=== PATIENT | female | born 1990 | race African-American/Black ===

== ENCOUNTER 2018-10-22 03:57 | Inpatient (IN) | payer BC, OTHER ==
[~2018-10-22] VITALS: Ht 167.6 cm; Wt 75.3 kg
[~2018-10-22 03:57] MED LIST: ENTOCORT EC3 MG PO; IBUPROFEN600 MG ORAL; [UNRECOGNIZED DRUG - OTHER]
[2018-10-22] MEDS ORDERED: TRAZODONE HCL150 MG ORAL (04:08)
[2018-10-22] MEDS ORDERED: ALPRAZOLAM0.25 MG ORAL (04:08)
[2018-10-22] MEDS ORDERED: BUPROPION XL300 MG ORAL (04:08)
--- NOTE | 2018-10-22 04:15 | NUR ---
ER Nurse Note: Pt came from home c/o abd pain since 1999 on 10/21. Pt states she thinks it is a bowel obstruction because she had the same pain in the past from bowel obstructions. Pain is located in upper left quadrant; 8/10 sharp pain. Pt a&ox4, VSS. Pt stated she has hx of crohn's disease. Will continue to [facility].
[2018-10-22 04:27] VITALS: BP 120/83
--- NOTE | 2018-10-22 05:01 | Emergency Room Report ---
History of Present Illness General Chief Complaint: Abdominal Pain Source: Patient Present Illness HPI Patient's 28-year-old female who presented after increased epigastric discomfort. Patient reports having prior history of Crohn's disease. She states she is currently taking Vedolizumab as well as oral budesonide. Patient states that she had worsening abdominal distention as well as pain. She reports having intermittent episodes. She states that she had not been vomiting but has had prior episodes of bowel obstructions in the past. She had previous balloon dilation of stricture from area of prior surgery. She denies any fever. She states that she had not been having any bloody stools. She states that she is not definitively she reports having last period approximately 1 week ago. Allergies: Coded Allergies: No Known Allergies (Unverified , 06/09/14) Patient History Past Medical History: see triage record Last Menstrual Period: 10/13/18 Now: No Reviewed Nursing Documentation: PMH: Agreed; PSxH: Agreed Nursing Documentation-PMH Past Medical History: No History, Except For Hx Gastrointestinal Problems: Yes - CROHN'S Review of Systems All Other Systems: negative except mentioned in HPI Physical Exam Vital Signs Date Time Temp Pulse Resp B/P (MAP) Pulse Ox O2 Delivery O2 Flow Rate FiO2 10/22/18 04:03 98.4 95 14 120/83 (95) 95 Room Air Sp02 EP Interpretation: reviewed, normal General Appearance: normal inspection, well appearing, no apparent distress, alert, GCS 15 Head: atraumatic ENT: normal ENT inspection, hearing grossly normal, normal voice Neck: normal inspection, full range of motion, supple, no bony tend Respiratory: normal inspection, lungs clear, normal breath sounds, no respiratory distress, no retraction, no wheezing Cardiovascular #1: regular rate, rhythm, no edema Gastrointestinal: normal inspection, non tender, soft, no guarding, no hernia, decreased bowel sounds Genitourinary: no CVA tenderness Musculoskeletal: normal inspection, back normal, normal range of motion Neurologic: normal inspection, alert, oriented x3, responsive, city dispatch supervisor III-XII nml as tested, speech normal Psychiatric: normal inspection, judgement/insight normal, mood/affect normal Skin: normal inspection, normal color, no rash Medical Decision Making Diagnostic Impression: Primary Impression: Crohns disease ER Course Patient presented for abdominal pain. Differential diagnoses included ischemic bowel, appendicitis, perforated viscus, abdominal aortic aneurysm, inferior myocardial infarction, viral gastroenteritis among others. Because of complexity of patient's case laboratory testing and imaging studies were ordered.Patient was noted to have some mild abdominal tenderness. Patient was given morphine for pain. Patient's laboratory testing was unremarkable. Given the patient's prior history of multiple obstructions in the past and prior history of Crohn's disease patient will be admitted for further evaluation and treatment. Patient was endorsed to for final disposition. Labs Test 10/22/18 05:00 10/22/18 05:18 White Blood Count 6.0 K/UL (4.8-10.8) Red Blood Count 4.77 M/UL (4.20-5.40) Hemoglobin 13.9 G/DL (12.0-16.0) Hematocrit 41.9 % (37.0-47.0) Mean Corpuscular Volume 88 FL (80-99) Mean Corpuscular Hemoglobin 29.1 PG (27.0-31.0) Mean Corpuscular Hemoglobin Concent 33.1 G/DL (32.0-36.0) Red Cell Distribution Width 12.9 % (11.6-14.8) Platelet Count 370 K/UL (150-450) Mean Platelet Volume 5.3 FL (6.5-10.1) Neutrophils (%) (Auto) 49.1 % (45.0-75.0) Lymphocytes (%) (Auto) 44.0 % (20.0-45.0) Monocytes (%) (Auto) 5.0 % (1.0-10.0) Eosinophils (%) (Auto) 0.6 % (0.0-3.0) Basophils (%) (Auto) 1.3 % (0.0-2.0) Erythrocyte Sedimentation Rate 48 MM/HR (0-20) Sodium Level 137 MMOL/L (136-145) Potassium Level 3.9 MMOL/L (3.5-5.1) Chloride Level 101 MMOL/L (98-107) Carbon Dioxide Level 27 MMOL/L (21-32) Anion Gap 9 mmol/L (5-15) Blood Urea Nitrogen 13 mg/dL (7-18) Creatinine 1.0 MG/DL (0.55-1.30) Estimat Glomerular Filtration Rate > 60 mL/min (>60) Glucose Level 92 MG/DL (74-106) Calcium Level 9.6 MG/DL (8.5-10.1) Total Bilirubin 0.5 MG/DL (0.2-1.0) Aspartate Amino Transf (AST/SGOT) 23 U/L (15-37) Alanine Aminotransferase (ALT/SGPT) 38 U/L (12-78) Alkaline Phosphatase 84 U/L (46-116) Total Protein 8.9 G/DL (6.4-8.2) Albumin 4.1 G/DL (3.4-5.0) Globulin 4.8 g/dL Lipase 92 U/L (73-393) Urine Color Pale yellow Urine Appearance Clear Urine pH 5 (4.5-8.0) Urine Specific [place] 1.020 (1.005-1.035) Urine Protein Negative (NEGATIVE) Urine Glucose (UA) Negative (NEGATIVE) Urine Ketones 1+ (NEGATIVE) Urine Blood 2+ (NEGATIVE) Urine Nitrite Negative (NEGATIVE) Urine Bilirubin Negative (NEGATIVE) Urine Urobilinogen Normal MG/DL (0.0-1.0) Urine Leukocyte Esterase 1+ (NEGATIVE) Urine RBC 2-4 /HPF (0 - 2) Urine WBC 0-2 /HPF (0 - 2) Urine Squamous Epithelial Cells Moderate /LPF (NONE/OCC) Urine Bacteria Few /HPF (NONE) Last Vital Signs Date Time Temp Pulse Resp B/P (MAP) Pulse Ox O2 Delivery O2 Flow Rate FiO2 10/22/18 04:27 95 14 Room Air 10/22/18 04:27 98.4 120/83 95 Status: unchanged Disposition: ADMITTED INPATIENT Condition: Stable Referrals: [facility],REFERRING (PCP) Cortez Ortega MD Oct 22, 2018 05:01
[2018-10-22 05:19] LABS: ANION GAP 9 mmol/L (5-15); BASOPHILS % (AUTO) 1.3 % (0.0-2.0); BLOOD UREA NITROGEN 13 mg/dL (7-18); CALCIUM 9.6 MG/DL (8.5-10.1); CARBON DIOXIDE 27 MMOL/L (21-32); CHLORIDE 101 MMOL/L (98-107); EOSINOPHILS % (AUTO) 0.6 % (0.0-3.0); HEMATOCRIT 41.9 % (37.0-47.0); HEMOGLOBIN 13.9 G/DL (12.0-16.0); MEAN CORPUSCULAR VOLUME 88 FL (80-99); NEUTROPHILS % (AUTO) 49.1 % (45.0-75.0); PLATELET COUNT 370 K/UL (150-450); POTASSIUM 3.9 MMOL/L (3.5-5.1); RED BLOOD COUNT 4.77 M/UL (4.20-5.40); RED CELL DISTRIBUTION WIDTH 12.9 % (11.6-14.8); SODIUM 137 MMOL/L (136-145)
[2018-10-22 05:24] LABS: ALANINE AMINOTRANSFERASE 38 U/L (12-78); ALBUMIN 4.1 G/DL (3.4-5.0); ALBUMIN/GLOBULIN RATIO 0.9 (1.0-2.7); ALKALINE PHOSPHATASE 84 U/L (46-116); ASPARTATE AMINO TRANSFERASE 23 U/L (15-37); BILIRUBIN,TOTAL 0.5 MG/DL (0.2-1.0)
[2018-10-22 05:44] LABS: APPEARANCE,URINE CLEAR; BILIRUBIN, URINE NEGATIVE (NEGATIVE); COLOR,URINE PALE YELLOW; GLUCOSE, URINE (UA) NEGATIVE (NEGATIVE); KETONES,URINE 1+ (NEGATIVE); LEUKOCYTE ESTERASE ,URINE 1+ (NEGATIVE); NITRITE,URINE NEGATIVE (NEGATIVE); PH,URINE 5 (4.5-8.0); PROTEIN,URINE NEGATIVE (NEGATIVE); UROBILINOGEN,URINE NORMAL MG/DL (0.0-1.0)
[2018-10-22 06:00] VITALS: BP 126/82
[2018-10-22] MEDS ORDERED: Morphine Sulfate 4mg/ml Inj (IV USE ONLY) IVP ONE ×2 (06:00→09:45)
--- NOTE | 2018-10-22 06:00 | NUR ---
ER Nurse Note: All orders completed per ERMD orders. Pt pending xray; radiologist aware. Pt expressed pain, ERMD ordered. Pain meds given; will reassess. Pt a&ox4, VSS. All safety measures met; will continue to montior.
--- NOTE | 2018-10-22 07:00 | NUR ---
ER Nurse Note: X-ray taken; all orders completed per ERMD orders. Pt a&ox4, VSS, no signs of acute distress. SLIV LT AC; patent. Pending room. All safety measures met; will endorse to oncoming shift for continuity of care.
[2018-10-22 09:39] VITALS: BP 98/62
--- NOTE | 2018-10-22 09:45 | NUR ---
ED Nurse Note: pt complains of 7/10 abdominal pain and was asking for pain meds, ermd amde aware and iv morphine given, pt able to tolerate. will continue to monitor.
--- NOTE | 2018-10-22 09:53 | NUR ---
ED Nurse Note: pt is admitted to hospital, report given to Faisal limon, pt is transported by lighting engineer with stable vs
--- NOTE | 2018-10-22 10:15 | NUR ---
NURSE NOTES: Patient came to unit by ashley in stable condition. Alert and oriented x4. No complain of pain or distress at this time. Skin intact and dry. IV dressing intact and dry. Belonging checked. Bed lowest position. Call light within reach. Will continue to monitor.
[2018-10-22] MEDS ORDERED: ALPRAZolam 0.25mg tab ORAL PRN (11:15)
[2018-10-22] MEDS: D5 1/2NS 1,000 ML IV SCH ×3 (12:01→22:47)
--- NOTE | 2018-10-22 13:20 | History & Physical ---
History and Physical History & Physicial dict Crohn's flare high protein SPEP IVF steroids GI following Zachery Bridges MD Oct 22, 2018 13:20
[2018-10-22] MEDS ORDERED: HYDROcodone/Acetamin 5/325 tab ORAL PRN (14:00)
[2018-10-22] MEDS: Solu-MEDROL 40mg Inj IVP SCH ×2 (14:01→22:03)
--- NOTE | 2018-10-22 14:20 | NUR ---
NURSE NOTES: Spoke to regarding pain medication and new order received. Order read back and carried out.
[2018-10-22] MEDS: Morphine Sulfate 4mg/ml Inj (IV USE ONLY) IVP PRN ×3 (14:30→22:46)
--- NOTE | 2018-10-22 16:15 | NUR ---
*-* INSURANCE *-* ALL CLINICALS HAVE BEEN FAXED TO: SARAHY MARTINI:CARYE Kunz [phone] Work Work
--- NOTE | 2018-10-22 17:45 | History and Physical Report ---
DATE OF ADMISSION: 10/22/2018 HISTORY OF PRESENT ILLNESS: This is a 28-year-old woman with several years of Crohn's disease, who is admitted with increasing abdominal pain and diarrhea. She reports a few days of distention, pain, and episodes of diarrhea. She is on oral medications, but no systemic steroids. She had abdominal surgery years ago. She has no vomiting or fevers. She does have a problem with stricture, which has been dilated with a balloon procedure. There is no blood or mucus in the stool. PAST MEDICAL HISTORY: Negative except for Crohn's. MEDICATIONS: Reviewed. ALLERGIES: None. PHYSICAL EXAMINATION: VITAL SIGNS: Stable. She is somewhat overweight. HEENT: The head is normocephalic. NECK: There is no jugular venous distention. Lymph nodes are not enlarged. CHEST: Clear. CARDIAC: Rhythm is regular. ABDOMEN: Slightly protuberant and soft. There is no significant tenderness. The liver and spleen are not enlarged. There is no mass or ascites. EXTREMITIES: No clubbing, cyanosis, or edema. LABORATORY AND DIAGNOSTIC DATA: Laboratory studies are reviewed. IMPRESSION: 1. Flare of Crohn's disease. 2. Hyperproteinemia. PLAN: The patient has been seen by Gastroenterology and intravenous fluids and steroids were ordered. She may require endoscopy. Zachery Bridges M.D. DR: JOYCE JOB#: [id number] CC:
--- NOTE | 2018-10-22 19:30 | NUR ---
HAND-OFF: Report given to Heavenly MARTINEZ. Patient in stable condition.
--- NOTE | 2018-10-22 19:48 | NUR ---
NURSE NOTES: Received patient in bed, awake, oriented x 4, on room air, no acute distress noted VSS, afebrile, call light is within reach, bed is in low position, locked and alarm is on, will continue to monitor for safety and comfort.
[2018-10-22] MEDS: TraZODone 50mg tab ORAL SCH (20:12)
[2018-10-22 20:35] VITALS: BP 102/68
--- NOTE | 2018-10-22 21:57 | General Progress Note ---
Assessment/Plan Assessment/Plan: Assessment - Long standing CD - diarrhea, abd pain - presumed CD flare - s/p 1.5 ft ileocolonic resection - dilated SB on xray Recommendations - NPO - IVF - Check stools - Check CMV PCR - Solumedrol - check B 12 - follow Sx and exam Subjective Allergies: Coded Allergies: No Known Allergies (Unverified , 06/09/14) Objective Last 24 Hour Vital Signs Date Time Temp Pulse Resp B/P (MAP) Pulse Ox O2 Delivery O2 Flow Rate FiO2 10/22/18 21:00 Room Air 10/22/18 20:35 82 16 102/68 (79) 10/22/18 11:57 Room Air 10/22/18 09:53 98.4 71 14 98/62 100 Room Air 10/22/18 09:39 71 14 98/62 100 Room Air 10/22/18 06:59 98.4 10/22/18 06:00 98.4 86 16 126/82 97 Room Air 10/22/18 04:27 95 14 Room Air 10/22/18 04:27 98.4 94 14 120/83 95 Room Air 10/22/18 04:03 98.4 95 14 120/83 (95) 95 Room Air Intake and Output 10/21/18 10/22/18 19:00 07:00 Intake Total 1000 ml Balance 1000 ml Intake IV Total 1000 ml Laboratory Tests 10/22/18 05:00: White Blood Count 6.0, Red Blood Count 4.77, Hemoglobin 13.9, Hematocrit 41.9, Mean Corpuscular Volume 88, Mean Corpuscular Hemoglobin 29.1, Mean Corpuscular Hemoglobin Concent 33.1, Red Cell Distribution Width 12.9, Platelet Count 370, Mean Platelet Volume 5.3L, Neutrophils (%) (Auto) 49.1, Lymphocytes (%) (Auto) 44.0, Monocytes (%) (Auto) 5.0, Eosinophils (%) (Auto) 0.6, Basophils (%) (Auto ) 1.3, Erythrocyte Sedimentation Rate 48H, Sodium Level 137, Potassium Level 3.9 , Chloride Level 101, Carbon Dioxide Level 27, Anion Gap 9, Blood Urea Nitrogen 13, Creatinine 1.0, Estimat Glomerular Filtration Rate > 60, Glucose Level 92, Calcium Level 9.6, Total Bilirubin 0.5, Aspartate Amino Transf (AST/SGOT) 23, Alanine Aminotransferase (ALT/SGPT) 38, Alkaline Phosphatase 84, Total Protein 8.9H, Total Protein (PEP) [Pending], Albumin 4.1, Albumin (PEP) [Pending], Globulin 4.8, Globulin (PEP) [Pending], Albumin/Globulin Ratio [Pending], Alpha- 1-Globulins [Pending], Difjc-0-Erazkxeur [Pending], Beta Globulins [Pending], Beta Gamma Globulin [Pending], PEP Abnormal Protein Bands [Pending], Protein Electrophoresis Interpret [Pending], Lipase 92 10/22/18 05:18: Urine Color Pale yellow, Urine Appearance Clear, Urine pH 5, Urine Specific [place] 1.020, Urine Protein Negative, Urine Glucose (UA) Negative, Urine Ketones 1+H, Urine Blood 2+H, Urine Nitrite Negative, Urine Bilirubin Negative, Urine Urobilinogen Normal, Urine Leukocyte Esterase 1+H, Urine RBC 2-4H, Urine WBC 0-2, Urine Squamous Epithelial Cells ModerateH, Urine Bacteria Few Height (Feet): 5 Height (Inches): 6.00 Weight (Pounds): 165 Izabel Nath MD Oct 22, 2018 21:57
[2018-10-23 00:39] VITALS: BP 114/69
[2018-10-23] MEDS: Morphine Sulfate 4mg/ml Inj (IV USE ONLY) IVP PRN ×4 (04:51→20:06)
[2018-10-23 04:59] VITALS: BP 104/59
[2018-10-23] MEDS: Solu-MEDROL 40mg Inj IVP SCH ×3 (05:33→21:33)
--- NOTE | 2018-10-23 06:52 | NUR ---
HAND-OFF: Report given to Silke MARTINEZ.
[2018-10-23 07:13] LABS: HEMATOCRIT 40.6 % (37.0-47.0); HEMOGLOBIN 13.4 G/DL (12.0-16.0); MEAN CORPUSCULAR VOLUME 89 FL (80-99); PLATELET COUNT 348 K/UL (150-450); RED BLOOD COUNT 4.58 M/UL (4.20-5.40); WHITE BLOOD COUNT 3.1 K/UL (4.8-10.8)
[2018-10-23 07:34] LABS: ALANINE AMINOTRANSFERASE 28 U/L (12-78); ALBUMIN 3.3 G/DL (3.4-5.0); ALBUMIN/GLOBULIN RATIO 0.8 (1.0-2.7); ALKALINE PHOSPHATASE 76 U/L (46-116); ANION GAP 10 mmol/L (5-15); ASPARTATE AMINO TRANSFERASE 16 U/L (15-37); BILIRUBIN,TOTAL 0.3 MG/DL (0.2-1.0); BLOOD UREA NITROGEN 5 mg/dL (7-18); CALCIUM 9.3 MG/DL (8.5-10.1); CARBON DIOXIDE 25 MMOL/L (21-32); CHLORIDE 104 MMOL/L (98-107); CREATININE 0.8 MG/DL (0.55-1.30); POTASSIUM 4.1 MMOL/L (3.5-5.1); SODIUM 139 MMOL/L (136-145)
--- NOTE | 2018-10-23 07:53 | NUR ---
NURSE NOTES: Patient received resting in bed. Alert and oriented, denies SOB or pain at this time. Reports awaiting transfer to [facility]. IV site on left arm patent and intact, running fluids at 125cc/hr. Call light placed within reach. Will continue to monitor.
[2018-10-23 08:00] VITALS: BP 106/63
[2018-10-23] MEDS: D5 1/2NS 1,000 ML IV SCH ×2 (08:19→20:07)
[2018-10-23] MEDS: BuPROPion XL 150mg tab ORAL SCH (08:19)
--- NOTE | 2018-10-23 08:59 | NUR ---
CO DIRECTORDRAW FURNACE TENDER 28 Y/O FEMALE FROM HOME CAME TO [facility] ER CC:ABDOMINAL PAIN SI:CROHN'S DISEASE VS: BP 98/62, P 71, T 98.4, RR 16, SpO2 97 ESR 48, TOTAL PROTEIN 8.9, ALBUMIN 0.9 IS:MORPHINE 4mg IVP NS x1L IV ADMITTED TO MED/SURG DCP: RETURN HOME
--- NOTE | 2018-10-23 11:52 | NUR ---
NURSE NOTES: RN attempted to reach PMD regarding patient's decreased WBC level. Central Office Equipment Installer transferred to the On-Call MD as PMD was unavailable. On-Call MD stated he is not covering. RN will try at a later time.
[2018-10-23 12:00] VITALS: BP 100/58
--- NOTE | 2018-10-23 12:09 | Diagnostic Imaging Report ---
Indication: Abdominal pain Technique: Supine view of the abdomen Comparison: none Findings: Surgical clips are seen in the right lower quadrant. The bowel gas pattern is unremarkable. No masses or unusual calcifications. Impression: No acute process
--- NOTE | 2018-10-23 13:15 | Consultation ---
DATE OF CONSULTATION: 10/22/2018 GASTROENTEROLOGY CONSULTATION CONSULTING PHYSICIAN: Izabel Nath M.D. REFERRING PHYSICIAN: Zachery Bridges M.D. CHIEF COMPLAINT: I was asked to see this patient by Dr. Zachery Bridges for evaluation of Crohn's disease and abdominal issues. HISTORY OF PRESENT ILLNESS: The patient is a 28-year-old woman with longstanding Crohn's disease who is usually followed by [facility] inflammatory bowel disease clinic. She comes to this hospital for admission since there was a long wait at [facility] emergency room. She comes in with several days of worsening diarrhea and up to 10 bowel movements a day and night. She also has some nausea and significant abdominal pain. These resemble her previous Crohn's exacerbation in the past and she usually gets admitted and resolved with IV steroids conservatively. She therefore came to the emergency room where she was admitted. Her Crohn's disease history goes back to 2003 when she was first diagnosed with Crohn's disease at approximate age of 15. She had an area of colonic resection from bowel surgery in 2007. Other than that, she had no surgeries on her abdomen. She has had some colonoscopies with strictureplasty, but her last colonoscopy was 2 years ago. She has also had some admissions to [facility] with bowel obstruction. These were usually managed conservatively. She has been placed on Entyvio for the last two to three months or so, but apparently her doses have been erratic due to change in insurance and lapse of insurance coverage. The patient was seen just lastly by Dr. Hall at [facility]. Because of the ongoing diarrhea, she was advised to also add Entocort three tablets a day, and she just started this week a few days ago. She denies any blood in her stools. PAST MEDICAL HISTORY: Remarkable for history of Crohn's disease, history of lichen sclerosus, history of polycystic ovarian syndrome, history of small bowel obstruction, status post ileocolonic resection, status post multiple endoscopies and colonoscopies and double-balloon enteroscopies. FAMILY HISTORY: Positive for diabetes in his sister, inflammatory bowel disease in the maternal grandfather, lung cancer in the maternal grandfather, and ulcerative colitis in her maternal uncle. SOCIAL HISTORY: The patient denies smoking to me, although at [facility] records, there is smoking history reported. She drinks occasionally. She does not use drugs. MEDICATIONS: Include Entocort 2 tablets a day, Entyvio every six weeks, Wellbutrin, trazodone, and Xanax. ALLERGIES: noted. REVIEW OF SYSTEMS: Otherwise negative. PHYSICAL EXAMINATION: GENERAL: A well-built woman in no distress. HEENT: Normocephalic and atraumatic. Sclerae anicteric. Oropharynx clear. NECK: Supple. CHEST: Clear to auscultation. CARDIOVASCULAR: Revealed regular rate. ABDOMEN: Soft and mildly tender in the lower quadrants without guarding or rebound. No masses. EXTREMITIES: Revealed no edema. LABORATORY DATA: Laboratory data were noted. ASSESSMENT: This patient presents with profuse diarrhea, now abdominal pain and some nausea typical of her Crohn's disease exacerbations. She was started on Entocort, steroid, last week due to these symptoms, but because of worsening character, I will convert Entocort to intravenous steroid. In addition, the KUB showed dilated small bowel and she may not absorb oral medications. I will also check her stools for typical pathogens including Clostridium difficile and also for CMV PCR her blood to rule out these typical complications. In the meantime, she can be treated for exacerbation of the Crohn's with intravenous steroids. Her abdominal exam and symptoms improved and oral diet can be restarted. She was advised to follow up with [facility] after she is discharged from this hospital. RECOMMENDATIONS: Per above discussion and per orders written in the chart. Thank you for asking me to participate in the care of this patient. Izabel Nath M.D. DR: LACHELLE JOB#: [id number] CC: VICKY
--- NOTE | 2018-10-23 13:48 | NUR ---
DEVELOPMENT ADMINISTRATOR NOTES SPOKE WITH [facility] AND THEY WILL INITIATE TRANSFER EVEN THO THEY HAVE NO OPEN BEDS. [facility] TRANSFER CENTER NUMBER IS [phone].
[2018-10-23 16:00] VITALS: BP 104/69
--- NOTE | 2018-10-23 16:13 | NUR ---
*-* INSURANCE *-* ALL CLINICALS HAVE BEEN FAXED TO: SARAHY MARTINI:CAREY Kunz [phone] Work Work
--- NOTE | 2018-10-23 19:16 | NUR ---
NURSE NOTES: PATIENT IN BED, AOX4. IV IN PLACE, RUNNING IV FLUIDS. NO COMPLAINTS OF PAIN AT THIS TIME. NO S/S DISTRESS NOTED. VISITORS AT BEDSIDE. BED LOCKED POSITION, CALL LIGHT WITHIN REACH, WILL CONTINUE TO MONITOR.
--- NOTE | 2018-10-23 19:16 | NUR ---
HAND-OFF: Report given to Melissa MARTINEZ.
[2018-10-23 20:33] VITALS: BP 126/76
[2018-10-23] MEDS: TraZODone 50mg tab ORAL SCH (21:33)
--- NOTE | 2018-10-23 22:00 | NUR ---
NURSE NOTES: PATIENT REQUESTED TO HAVE MORPHINE PAIN MEDICATION CHANGED TO DILAUDID BECAUSE HE PAIN IS NOT GOING AWAY AND PER PATIENT DILAUDID DOES RELIEVE THE PAIN. CALLED DR. FITZGERALD'S ANSWERING SERVICE AND SPOKE WITH DR. NOLAND (COVERING MD) AND PER DR. NOLAND, "WE'RE NOT GOING TO CHANGE ANY PAIN MEDICATION AT THIS HOUR. HAVE THE PATIENT TALK TO THE DOCTOR TOMORROW MORNING". CHARGE NURSE AWARE.
--- NOTE | 2018-10-23 22:11 | General Progress Note ---
Assessment/Plan Assessment/Plan: Assessment - Long standing CD - diarrhea, abd pain - presumed CD flare - s/p 1.5 ft ileocolonic resection - dilated SB on xray Recommendations - NPO - IVF - Check stools - Check CMV PCR - Solumedrol - check B 12 - follow Sx and exam Subjective Allergies: Coded Allergies: No Known Allergies (Unverified , 06/09/14) Subjective above noted pain better comfortable no diarrhea no vomiting Objective Last 24 Hour Vital Signs Date Time Temp Pulse Resp B/P (MAP) Pulse Ox O2 Delivery O2 Flow Rate FiO2 10/23/18 20:36 98.0 10/23/18 20:33 98.0 77 20 126/76 (93) 100 10/23/18 20:10 Room Air 10/23/18 16:00 97.8 64 22 104/69 (81) 99 10/23/18 12:00 97.9 67 21 100/58 (72) 97 10/23/18 09:00 Room Air 10/23/18 08:00 97.9 68 20 106/63 (77) 98 10/23/18 04:59 97.3 78 18 104/59 (74) 10/23/18 00:39 98.8 72 18 114/69 (84) Intake and Output 10/22/18 10/23/18 18:59 06:59 Intake Total 500 ml Balance 500 ml Intake IV Total 500 ml # Voids 3 Laboratory Tests 10/23/18 06:15: White Blood Count 3.1L, Red Blood Count 4.58, Hemoglobin 13.4, Hematocrit 40.6, Mean Corpuscular Volume 89, Mean Corpuscular Hemoglobin 29.4, Mean Corpuscular Hemoglobin Concent 33.1, Red Cell Distribution Width 13.0, Platelet Count 348, Mean Platelet Volume 5.1L, Neutrophils (%) (Auto) , Lymphocytes (%) (Auto) , Monocytes (%) (Auto) , Eosinophils (%) (Auto) , Basophils (%) (Auto) , Differential Total Cells Counted 100, Neutrophils % (Manual) 71, Lymphocytes % ( Manual) 24, Monocytes % (Manual) 5, Eosinophils % (Manual) 0, Basophils % ( Manual) 0, Band Neutrophils 0, Platelet Estimate Adequate, Platelet Morphology Normal, Red Blood Cell Morphology Normal, Sodium Level 139, Potassium Level 4.1 , Chloride Level 104, Carbon Dioxide Level 25, Anion Gap 10, Blood Urea Nitrogen 5L, Creatinine 0.8, Estimat Glomerular Filtration Rate > 60, Glucose Level 164H, Calcium Level 9.3, Total Bilirubin 0.3, Aspartate Amino Transf (AST/ SGOT) 16, Alanine Aminotransferase (ALT/SGPT) 28, Alkaline Phosphatase 76, Total Protein 7.7, Albumin 3.3L, Globulin 4.4, Albumin/Globulin Ratio 0.8L, Vitamin B12 Level 476, Human Chorionic Gonadotropin, Qual Negative Height (Feet): 5 Height (Inches): 6.00 Weight (Pounds): 166 Objective Calm, NAD NCAT supple CTA RRR abd Soft ND no edema Izabel Nath MD Oct 23, 2018 22:11
--- NOTE | 2018-10-23 23:51 | Pulmonology Progress Note ---
Assessment/Plan Assessment/Plan Progress Note HPI: This is a 28-year-old woman with several years of Crohn's disease, who is admitted with increasing abdominal pain and diarrhea. She reports a few days of distention, pain, and episodes of diarrhea. She is on oral medications, but no systemic steroids. She had abdominal surgery years ago. She has no vomiting or fevers. She does have a problem with stricture, which has been dilated with a balloon procedure. There is no blood or mucus in the stool. Less abdominal pain, NPO - on IVF PAST MEDICAL HISTORY: Negative except for Crohn's. MEDICATIONS: Reviewed. ALLERGIES: None. PHYSICAL EXAMINATION: VITAL SIGNS: Noted. HEENT: The head is normocephalic. NECK: There is no jugular venous distention. Lymph nodes are not enlarged. CHEST: Clear. CARDIAC: Rhythm is regular. ABDOMEN: Slightly protuberant and soft. There is no significant tenderness. The liver and spleen are not enlarged. There is no mass or ascites. EXTREMITIES: No clubbing, cyanosis, or edema. LABORATORY AND DIAGNOSTIC DATA: Laboratory studies are reviewed. IMPRESSION: 1. Flare of Crohn's disease. 2. Hyperproteinemia. PLAN: The patient has been seen by Gastroenterology and intravenous fluids and steroids were ordered. She may require endoscopy. NPO. Subjective ROS Limited/Unobtainable: No Allergies: Coded Allergies: No Known Allergies (Unverified , 06/09/14) Objective Last 24 Hour Vital Signs Date Time Temp Pulse Resp B/P (MAP) Pulse Ox O2 Delivery O2 Flow Rate FiO2 10/23/18 20:36 98.0 10/23/18 20:33 98.0 77 20 126/76 (93) 100 10/23/18 20:10 Room Air 10/23/18 16:00 97.8 64 22 104/69 (81) 99 10/23/18 12:00 97.9 67 21 100/58 (72) 97 10/23/18 09:00 Room Air 10/23/18 08:00 97.9 68 20 106/63 (77) 98 10/23/18 04:59 97.3 78 18 104/59 (74) 10/23/18 00:39 98.8 72 18 114/69 (84) Intake and Output 10/22/18 10/23/18 19:00 07:00 Intake Total 500 ml Balance 500 ml Intake IV Total 500 ml # Voids 3 Laboratory Tests 10/23/18 06:15: White Blood Count 3.1L, Red Blood Count 4.58, Hemoglobin 13.4, Hematocrit 40.6, Mean Corpuscular Volume 89, Mean Corpuscular Hemoglobin 29.4, Mean Corpuscular Hemoglobin Concent 33.1, Red Cell Distribution Width 13.0, Platelet Count 348, Mean Platelet Volume 5.1L, Neutrophils (%) (Auto) , Lymphocytes (%) (Auto) , Monocytes (%) (Auto) , Eosinophils (%) (Auto) , Basophils (%) (Auto) , Differential Total Cells Counted 100, Neutrophils % (Manual) 71, Lymphocytes % ( Manual) 24, Monocytes % (Manual) 5, Eosinophils % (Manual) 0, Basophils % ( Manual) 0, Band Neutrophils 0, Platelet Estimate Adequate, Platelet Morphology Normal, Red Blood Cell Morphology Normal, Sodium Level 139, Potassium Level 4.1 , Chloride Level 104, Carbon Dioxide Level 25, Anion Gap 10, Blood Urea Nitrogen 5L, Creatinine 0.8, Estimat Glomerular Filtration Rate > 60, Glucose Level 164H, Calcium Level 9.3, Total Bilirubin 0.3, Aspartate Amino Transf (AST/ SGOT) 16, Alanine Aminotransferase (ALT/SGPT) 28, Alkaline Phosphatase 76, Total Protein 7.7, Albumin 3.3L, Globulin 4.4, Albumin/Globulin Ratio 0.8L, Vitamin B12 Level 476, Human Chorionic Gonadotropin, Qual Negative Current Medications Medications (Trade) Dose Ordered Sig/Torri Route PRN Reason Start Time Stop Time Status Last Admin Dose Admin Acetaminophen (Tylenol) 650 mg Q4H PRN ORAL Mild Pain/Temp > 100.5 10/22/18 14:00 11/21/18 13:59 Alprazolam (Xanax) 0.25 mg TIDPRN PRN ORAL For Anxiety 10/22/18 11:15 10/29/18 11:14 Bupropion HCl (Wellbutrin XL) 300 mg DAILY ORAL 10/23/18 09:00 11/22/18 08:59 10/23/18 08:19 Dextrose/Sodium Chloride 1,000 ml @ 125 mls/hr Q8H IV 10/22/18 11:45 11/21/18 11:44 10/23/18 20:07 Famotidine (Pepcid I.v.) 20 mg Q12H IVP 10/22/18 22:30 11/21/18 22:29 10/23/18 22:27 Methylprednisolone Sodium Succinate (Solu-MEDROL) 20 mg EVERY 8 HOURS IVP 10/22/18 14:00 11/21/18 13:59 10/23/18 21:33 Morphine Sulfate (Morphine Sulfate) 4 mg Q4H PRN IVP PAIN LEVEL 4-10 10/22/18 14:30 10/29/18 14:29 10/23/18 20:06 Trazodone HCl (Desyrel) 50 mg BEDTIME ORAL 10/22/18 21:00 11/21/18 20:59 10/23/18 21:33 Silvio Mccain MD Oct 23, 2018 23:51
--- NOTE | 2018-10-24 00:09 | NUR ---
NURSE NOTES: RECEIVED CALL FROM [facility] AND SPOKE WITH ARCELIA, NO BED AVAILABLE. CHARGE NURSE AWARE.
[2018-10-24] MEDS: Morphine Sulfate 4mg/ml Inj (IV USE ONLY) IVP PRN ×5 (00:18→20:27)
[2018-10-24 00:35] VITALS: BP 110/71
[2018-10-24] MEDS: D5 1/2NS 1,000 ML IV SCH ×3 (04:15→17:12)
[2018-10-24 04:39] VITALS: BP 117/81
[2018-10-24] MEDS: Solu-MEDROL 40mg Inj IVP SCH ×3 (05:19→22:13)
--- NOTE | 2018-10-24 05:39 | NUR ---
NURSE NOTES: Unable to collect stool sample, patient unable to have bowel movement yet.
--- NOTE | 2018-10-24 07:17 | NUR ---
HAND-OFF: Report given to CARRIE HILLIARD RN.
[2018-10-24 07:27] LABS: ALANINE AMINOTRANSFERASE 25 U/L (12-78); ALBUMIN 3.5 G/DL (3.4-5.0); ALBUMIN/GLOBULIN RATIO 0.8 (1.0-2.7); ALKALINE PHOSPHATASE 71 U/L (46-116); ANION GAP 9 mmol/L (5-15); ASPARTATE AMINO TRANSFERASE 14 U/L (15-37); BILIRUBIN,TOTAL 0.3 MG/DL (0.2-1.0); BLOOD UREA NITROGEN 7 mg/dL (7-18); CALCIUM 9.4 MG/DL (8.5-10.1); CARBON DIOXIDE 29 MMOL/L (21-32); CHLORIDE 102 MMOL/L (98-107); CREATININE 0.8 MG/DL (0.55-1.30); POTASSIUM 4.3 MMOL/L (3.5-5.1); SODIUM 140 MMOL/L (136-145)
[2018-10-24 07:30] LABS: BASOPHILS % (AUTO) 0.3 % (0.0-2.0); EOSINOPHILS % (AUTO) 0.1 % (0.0-3.0); HEMATOCRIT 37.9 % (37.0-47.0); HEMOGLOBIN 12.7 G/DL (12.0-16.0); LYMPHOCYTES % (AUTO) 27.2 % (20.0-45.0); MEAN CORPUSCULAR VOLUME 89 FL (80-99); MONOCYTES % (AUTO) 7.6 % (1.0-10.0); NEUTROPHILS % (AUTO) 64.9 % (45.0-75.0); PLATELET COUNT 332 K/UL (150-450); RED BLOOD COUNT 4.26 M/UL (4.20-5.40); RED CELL DISTRIBUTION WIDTH 13.1 % (11.6-14.8); WHITE BLOOD COUNT 4.6 K/UL (4.8-10.8)
[2018-10-24 07:51] VITALS: BP 109/68
--- NOTE | 2018-10-24 08:09 | NUR ---
NURSE NOTES: Patient received resting in bed. Alert and oriented, responds appropriately. Fluids running on right hand running at 125cc/hr. Patient has not had BM since 10/21, therefore no stool sample available yet. Patient is aware that stool sample is needed, collection hat placed in patient's toilet. Patient awaiting transfer to [facility]. Call light placed within reach, will continue to monitor.
[2018-10-24] MEDS: BuPROPion XL 150mg tab ORAL SCH (09:09)
--- NOTE | 2018-10-24 09:16 | NUR ---
*-* INSURANCE *-* UPDATED CLINICALS HAVE BEEN FAXED TO: SARAHY MARTINI:CAREY Kunz [phone] Work Work
--- NOTE | 2018-10-24 09:33 | NUR ---
[facility] NOTES CALLED TRANSFER CENTER AND SPOKE TO DEBORA [phone] WHO STATED THEY HAVE NO BEDS AND WILL CALL WHEN ONE IS AVAILABLE. WILL CONTINUE TO CHECK ON AVAILABILITY.
--- NOTE | 2018-10-24 09:37 | NUR ---
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 HYPERNATREMIA VS: BP 109/68, P 64, T 98.2, RR 20, SpO2 97 WBC 4.6, Glucose 129, AST 14 IS:DESYREL 50mg D5/NS x1L IV SOLU-MEDROL 20mg IVP WELLBUTRIN 300mg MORPHINE SULFATE 4mg IVP MED/SURG STATUS
[2018-10-24 12:00] VITALS: BP 106/65
--- NOTE | 2018-10-24 13:39 | Pulmonology Progress Note ---
Assessment/Plan Assessment/Plan Progress Note HPI: This is a 28-year-old woman with several years of Crohn's disease, who is admitted with increasing abdominal pain and diarrhea. She reports a few days of distention, pain, and episodes of diarrhea. She is on oral medications, but no systemic steroids. She had abdominal surgery years ago. She has no vomiting or fevers. She does have a problem with stricture, which has been dilated with a balloon procedure. There is no blood or mucus in the stool. Less abdominal pain, NPO - on IVF PAST MEDICAL HISTORY: Negative except for Crohn's. MEDICATIONS: Reviewed. ALLERGIES: None. PHYSICAL EXAMINATION: VITAL SIGNS: Noted. HEENT: The head is normocephalic. NECK: There is no jugular venous distention. Lymph nodes are not enlarged. CHEST: Clear. CARDIAC: Rhythm is regular. ABDOMEN: Slightly protuberant and soft. There is no significant tenderness. The liver and spleen are not enlarged. There is no mass or ascites. EXTREMITIES: No clubbing, cyanosis, or edema. LABORATORY AND DIAGNOSTIC DATA: Laboratory studies are reviewed. IMPRESSION: 1. Flare of Crohn's disease. 2. Hyperproteinemia. PLAN: The patient has been seen by Gastroenterology and intravenous fluids and steroids were ordered. She may require endoscopy. NPO. Subjective ROS Limited/Unobtainable: No Allergies: Coded Allergies: No Known Allergies (Unverified , 06/09/14) Objective Last 24 Hour Vital Signs Date Time Temp Pulse Resp B/P (MAP) Pulse Ox O2 Delivery O2 Flow Rate FiO2 10/24/18 12:00 97.9 72 18 106/65 (79) 100 10/24/18 09:00 Room Air 10/24/18 07:51 98.2 66 18 109/68 (82) 100 10/24/18 04:45 98.0 10/24/18 04:39 98.0 64 18 117/81 (93) 98 10/24/18 00:35 97.6 69 20 110/71 (84) 97 10/23/18 20:33 98.0 77 20 126/76 (93) 100 10/23/18 20:10 Room Air 10/23/18 16:00 97.8 64 22 104/69 (81) 99 Intake and Output 10/23/18 10/24/18 19:00 07:00 Intake Total 1125 ml Balance 1125 ml Intake IV Total 1125 ml # Voids 4 2 Laboratory Tests 10/24/18 05:47: White Blood Count 4.6L, Red Blood Count 4.26, Hemoglobin 12.7, Hematocrit 37.9, Mean Corpuscular Volume 89, Mean Corpuscular Hemoglobin 29.7, Mean Corpuscular Hemoglobin Concent 33.4, Red Cell Distribution Width 13.1, Platelet Count 332, Mean Platelet Volume 5.4L, Neutrophils (%) (Auto) 64.9, Lymphocytes (%) (Auto) 27.2, Monocytes (%) (Auto) 7.6, Eosinophils (%) (Auto) 0.1, Basophils (%) (Auto ) 0.3, Sodium Level 140, Potassium Level 4.3, Chloride Level 102, Carbon Dioxide Level 29, Anion Gap 9, Blood Urea Nitrogen 7, Creatinine 0.8, Estimat Glomerular Filtration Rate > 60, Glucose Level 129H, Calcium Level 9.4, Total Bilirubin 0.3, Aspartate Amino Transf (AST/SGOT) 14L, Alanine Aminotransferase ( ALT/SGPT) 25, Alkaline Phosphatase 71, Total Protein 7.7, Albumin 3.5, Globulin 4.2, Albumin/Globulin Ratio 0.8L Current Medications Medications (Trade) Dose Ordered Sig/Torri Route PRN Reason Start Time Stop Time Status Last Admin Dose Admin Acetaminophen (Tylenol) 650 mg Q4H PRN ORAL Mild Pain/Temp > 100.5 10/22/18 14:00 11/21/18 13:59 Alprazolam (Xanax) 0.25 mg TIDPRN PRN ORAL For Anxiety 10/22/18 11:15 10/29/18 11:14 Bupropion HCl (Wellbutrin XL) 300 mg DAILY ORAL 10/23/18 09:00 11/22/18 08:59 10/24/18 09:09 Dextrose/Sodium Chloride 1,000 ml @ 125 mls/hr Q8H IV 10/22/18 11:45 11/21/18 11:44 10/24/18 04:15 Famotidine (Pepcid I.v.) 20 mg Q12H IVP 10/22/18 22:30 11/21/18 22:29 10/24/18 09:13 Methylprednisolone Sodium Succinate (Solu-MEDROL) 20 mg EVERY 8 HOURS IVP 10/22/18 14:00 11/21/18 13:59 10/24/18 05:19 Morphine Sulfate (Morphine Sulfate) 4 mg Q4H PRN IVP PAIN LEVEL 4-10 10/22/18 14:30 10/29/18 14:29 10/24/18 09:21 Trazodone HCl (Desyrel) 50 mg BEDTIME ORAL 10/22/18 21:00 11/21/18 20:59 10/23/18 21:33 Silvio Mccain MD Oct 24, 2018 13:39
--- NOTE | 2018-10-24 15:58 | General Progress Note ---
Assessment/Plan Assessment/Plan: Assessment - Long standing CD - diarrhea, abd pain - presumed CD flare, resolving - s/p 1.5 ft ileocolonic resection - dilated SB on xray Recommendations - clear liquid - recheck KUB - IVF - Check stools - Check CMV PCR - Solumedrol - check B 12 --> normal - follow Sx and exam Subjective Allergies: Coded Allergies: No Known Allergies (Unverified , 06/09/14) Subjective above noted pain better comfortable no diarrhea no vomiting (+) flatus but no BM advised to wean down on narcotics Objective Last 24 Hour Vital Signs Date Time Temp Pulse Resp B/P (MAP) Pulse Ox O2 Delivery O2 Flow Rate FiO2 10/24/18 12:00 97.9 72 18 106/65 (79) 100 10/24/18 09:00 Room Air 10/24/18 07:51 98.2 66 18 109/68 (82) 100 10/24/18 04:45 98.0 10/24/18 04:39 98.0 64 18 117/81 (93) 98 10/24/18 00:35 97.6 69 20 110/71 (84) 97 10/23/18 20:33 98.0 77 20 126/76 (93) 100 10/23/18 20:10 Room Air 10/23/18 16:00 97.8 64 22 104/69 (81) 99 Intake and Output 10/23/18 10/24/18 19:00 07:00 Intake Total 1125 ml Balance 1125 ml Intake IV Total 1125 ml # Voids 4 2 Laboratory Tests 10/24/18 05:47: White Blood Count 4.6L, Red Blood Count 4.26, Hemoglobin 12.7, Hematocrit 37.9, Mean Corpuscular Volume 89, Mean Corpuscular Hemoglobin 29.7, Mean Corpuscular Hemoglobin Concent 33.4, Red Cell Distribution Width 13.1, Platelet Count 332, Mean Platelet Volume 5.4L, Neutrophils (%) (Auto) 64.9, Lymphocytes (%) (Auto) 27.2, Monocytes (%) (Auto) 7.6, Eosinophils (%) (Auto) 0.1, Basophils (%) (Auto ) 0.3, Sodium Level 140, Potassium Level 4.3, Chloride Level 102, Carbon Dioxide Level 29, Anion Gap 9, Blood Urea Nitrogen 7, Creatinine 0.8, Estimat Glomerular Filtration Rate > 60, Glucose Level 129H, Calcium Level 9.4, Total Bilirubin 0.3, Aspartate Amino Transf (AST/SGOT) 14L, Alanine Aminotransferase ( ALT/SGPT) 25, Alkaline Phosphatase 71, Total Protein 7.7, Albumin 3.5, Globulin 4.2, Albumin/Globulin Ratio 0.8L Height (Feet): 5 Height (Inches): 6.00 Weight (Pounds): 166 Objective Calm, NAD NCAT supple CTA RRR abd Soft ND no edema Izabel Nath MD Oct 24, 2018 15:58
[2018-10-24 16:00] VITALS: BP 113/69
--- NOTE | 2018-10-24 19:25 | NUR ---
HAND-OFF: Report given to Melissa MARTINEZ.
[2018-10-24 20:00] VITALS: BP 123/85
--- NOTE | 2018-10-24 20:30 | NUR ---
NURSE NOTES: PATIENT IN BED, AOX4. IV IN PLACE, RUNNING IV FLUIDS. BED LOCKED POSITION, CALL LIGHT WITHIN REACH, WILL CONTINUE TO MONITOR.
--- NOTE | 2018-10-24 21:00 | NUR ---
NURSE NOTES: [facility] CALLED, SPOKE WITH MICHELLE, PATIENT HAS A BED 7912. CALLED AND SPOKE WITH DR. MCKEON AND RECEIVED DISCHARGE ORDER FOR PATIENT TO TRANSFER PATIENT TO [facility] AND DR. MCKEON STATED THAT HE WOULD PUT INT HE DISCHARGE SUMMARY INTO THE COMPUTER. PATIENT SIGNED CONSENT TO TRANSFER. MEDICATION LIST, IMAGING CD FORM, CHART ASSEMBLED. AMBULANCE WAS CALLED AND ETA [id number]. CHARGE NURSE AWARE.
--- NOTE | 2018-10-24 21:20 | Discharge Summary ---
Discharge Summary Hospital Course Date of Admission Oct 22, 2018 at 08:38 Date of Discharge Oct 24, 2018 Admitting Diagnosis crohn's disease Reason for Hospitalization: Abdominal Yenifer HPI Mattyervalariei Fatoumata Barrios is a 28 year old female who was admitted on Oct 22, 2018 at 08:38 for Crohn's Disease She has a history of long standing Crohns disease, admitted with diarrhea, abdominal pain - presumed to be CD flare, resolving Started on IV Solumedrol 20 Q8, NPO, IVF, did not receive antibiotics PSH: 1.5 ft ileocolonic resection Investigations: dilated SB on xray CMV PCR pending Serum B [address] Nath GI Procedures None Hospital Course See above, Improved on NPO, IVF, IV Solumedrol Discharge Condition Upon Discharge: stable Discharge Disposition Patient was discharged to [facility] Sign out to Dr Guzman, Silvio Cortez MD Oct 24, 2018 21:20
[2018-10-24] MEDS: TraZODone 50mg tab ORAL SCH (21:51)
--- NOTE | 2018-10-24 22:00 | NUR ---
NURSE NOTES: CALLED [facility] AND ETA OF ELECTRONIC BENCH TECHNICIAN IS 45 MINUTES TO 1 HOUR.
--- NOTE | 2018-10-24 23:00 | NUR ---
NURSE NOTES: CALLED [facility] AND GAVE REPORT TO MICHELLE BLOUNT.
[2018-10-25] VITALS: BP 122/83
--- NOTE | 2018-10-25 00:06 | NUR ---
NURSE NOTES: CALLED [facility] AND SPOKE WITH DONTE AND ETA OF STOCK TRANSFER CLERK IS 30 MINUTES.
--- NOTE | 2018-10-25 00:07 | NUR ---
NURSE NOTES: CALLED [facility] ETA OF BANKING [place] IS 45 MINUTES TO 1 HOUR. Addendum: 10/25/18 at 0008 by AMMY GILLIAM RN RN DISREGARD ENTRY, WRONG TIME STAMP.
[2018-10-25] MEDS: Morphine Sulfate 4mg/ml Inj (IV USE ONLY) IVP PRN (00:32)
--- NOTE | 2018-10-25 01:16 | NUR ---
NURSE NOTES: PATIENT DISCHARGED, IN STABLE CONDITION, LEFT VIA AMBULANCE FOR TRANSFER TO [facility]. DISCHARGE PACKET GIVEN TO AMBULANCE PERSONNEL. PATIENT LEFT WITH PATIENT BELONGINGS. LEFT WITH IV ACCESS RIGHT HAND 22, PATENT AND INTACT.
--- NOTE | 2018-10-27 13:52 | NUR ---
*-* INSURANCE *-* UPDATED CLINICALS HAVE BEEN FAXED TO: SARAHY MARTINI:CAREY Kunz [phone] Work Work
== END 2018-10-25 01:16 | disposition short-term general hospital (02) | DRG 387 ==
LOC: EMR 04:37 → 4E 08:38 → EDBEDREQ 09:42 → 4E 11:56
DX: K50.90 Crohn's disease, unspecified, without complications (principal); E88.09 Other disorders of plasma-protein metabolism, not elsewhere classified; Z90.49 Acquired absence of other specified parts of digestive tract
CPT/HCPCS: 36415; 74018; 74019; 80053; 81003; 82607; 83690; 84165; 84703; 85007; 85025; 85651; 96361; 96374; 96375; 96376; 99285; J2405